=== PATIENT | female | born 1940 | race Caucasian/White ===

== ENCOUNTER 2016-10-20 14:18 | Emergency (ER) | payer OTHER ==
[~2016-10-20] VITALS: Ht 162.6 cm; Wt 87.0 kg
[~2016-10-20 14:18] MED LIST: AMLO5TAB2 PO; ASPI-496 PO; FURO20TA3 PO; GABA800T2 PO; GLIP10TA13 PO; LISI40TA PO; METF500T4 PO; METO25TA91 PO; NITR0.4T8 SL; OMEP40CA6 PO; POTA10TA11 PO; PRAV10TA2 PO
[2016-10-20 14:21] VITALS: BP 110/59
[2016-10-20] MEDS ORDERED: OXYMETAZOLINE NASAL SPRAY 0.05%, 15ML NAS ONE (15:00)
[2016-10-20] MEDS ORDERED: OXYMETAZOLINE NASAL SPRAY 0.05%, 15ML ONE (15:08)
[2016-10-20] MEDS ORDERED: BACITRACIN ZINC OINT 500U/GM, 0.9 GM ONE (16:06)
[2016-10-20 16:17] LABS: HEMOGLOBIN 14.4 g/dL (11.7-16.4)
== END 2016-10-20 17:03 | disposition home or self-care (01) ==
LOC: ED 16:45
DX: R04.0 Epistaxis (principal); I11.0 Hypertensive heart disease with heart failure; I50.9 Heart failure, unspecified; E11.9 Type 2 diabetes mellitus without complications; E78.5 Hyperlipidemia, unspecified; I25.2 Old myocardial infarction; Z86.73 Personal history of transient ischemic attack (TIA), and cerebral infarction without residual deficits; Z04.9 Encounter for examination and observation for unspecified reason; Z95.0 Presence of cardiac pacemaker
CPT/HCPCS: 36415; 85025; 85610; 85730; 99284